=== PATIENT | male | born 1985 | race African-American/Black ===

== ENCOUNTER 2021-01-07 18:03 | Emergency (ER) | payer OTHER ==
[2021-01-07 18:07] VITALS: BP 124/75; PULSE 62; RESP 18; TEMP 98.3
[2021-01-07] MEDS ORDERED: ACET/COD 300 MG/30 MG STARTER PACK 6 TAB BTL PO STA (18:23)
--- NOTE | 2021-01-07 18:23 | ED ---
ENT HPI - General Chief complaint: Dental/Oral Stated complaint: Tooth pain Time Seen by Provider: 01/07/21 18:13 Source: patient, family Mode of arrival: ambulatory Limitations: no limitations - History of Present Illness Initial comments: 39-year-old black male patient, alert and oriented 4, presents to the emergency room with dental pain, bottom right. Patient states that it hurts with palpation and with eating, it feels like a shooting pain. He denies any injury. No fevers. No gum tenderness or swelling. He states has been trying to reach [facility] s dentist but they're closed today. MD complaint: tooth pain Severity scale (1-10): 10 Quality: stabbing, aching Consistency: constant Improves with: none Worsens with: eating - Related Data Allergies Allergy/AdvReac Type Severity Reaction Status Date / Time No Known Allergies Allergy Verified 01/07/21 18:07 Review of Systems ROS Statement: Those systems with pertinent positive or pertinent negative responses have been documented in the HPI. ROS Other: All systems not noted in ROS Statement are negative. Past Medical History History of Any Multi-Drug Resistant Organisms: None Reported Past Surgical History: No Surgical Hx Reported Past Psychological History: No Psychological Hx Reported Smoking Status: Current every day smoker Past Alcohol Use History: Occasional Past Drug Use History: Marijuana General Exam Limitations: no limitations General appearance: alert, in no apparent distress Head exam: Present: atraumatic, normocephalic, normal inspection Eye exam: Present: normal appearance, PERRL, EOMI. Absent: scleral icterus, conjunctival injection, periorbital swelling ENT exam: Present: normal exam, normal oropharynx, mucous membranes moist Neck exam: Present: normal inspection, full ROM. Absent: tenderness, meningismus, lymphadenopathy, thyromegaly Respiratory exam: Present: normal lung sounds bilaterally. Absent: respiratory distress, wheezes, rales, rhonchi, stridor Cardiovascular Exam: Present: regular rate, normal rhythm, normal heart sounds. Absent: systolic murmur, diastolic murmur, rubs, gallop, clicks Back exam: Absent: tenderness, CVA tenderness (R), CVA tenderness (L) Neurological exam: Present: alert, oriented X3, CN II-XII intact Psychiatric exam: Present: normal affect, normal mood Skin exam: Present: warm, dry, intact, normal color. Absent: rash, cyanosis, diaphoretic Course Vital Signs 01/07/21 18:04 Temperature 98.3 F Pulse Rate 62 Respiratory 18 Rate Blood Pressure 124/75 O2 Sat by Pulse 95 Oximetry Medical Decision Making - Medical Decision Making Patient complaining of bottom right tooth number 29 pain. Patient states that pain is worse when he eats. He denies any injuries. There is no evidence of abscess. There is no gum tenderness. Patient offered a dental block and he declined at this time. Will be given pain medication to follow up with his dentist this week. Case discussed with Dr. Argueta. Disposition Clinical Impression: Pain, dental Disposition: HOME SELF-CARE Condition: Good Instructions (If sedation given, give patient instructions): Toothache (ED) Additional Instructions: Take Motrin as needed for dental pain in addition to Tylenol 3. Follow-up with your dentist this week. Is patient prescribed a controlled substance at d/c from ED?: No Referrals: None,Stated [Primary Care Provider] - 1-2 days Time of Disposition: 18:23
[2021-01-07] MEDS ORDERED: Acetaminophen-Codeine 300-30mg TAB PO STA (18:24)
== END 2021-01-07 18:36 | disposition home or self-care (01) ==
LOC: EC 18:03
DX: K08.89 Other specified disorders of teeth and supporting structures (principal); F17.200 Nicotine dependence, unspecified, uncomplicated
CPT/HCPCS: 99282